=== PATIENT | male | born 2000 ===

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

== ENCOUNTER → 2020-10-27 | Outpatient (CLI) | payer OTHER | LOC: M OUTALCOH 07:52 | PROVIDERS: ATTEND Psychiatry & Neurology Psychiatry | DX: F10.20 Alcohol dependence, uncomplicated (principal) ==

== ENCOUNTER 2020-11-28 11:00 | Outpatient (RCR) | payer OTHER | END 2020-11-29 | LOC: M OUTALCOH 11:00 | PROVIDERS: ATTEND Psychiatry & Neurology Psychiatry | DX: F10.20 Alcohol dependence, uncomplicated (principal) ==

== ENCOUNTER 2020-12-25 10:00 | Outpatient (RCR) | payer OTHER | END 2020-12-30 | LOC: M OUTALCOH 10:00 | PROVIDERS: ATTEND Psychiatry & Neurology Psychiatry | DX: F10.20 Alcohol dependence, uncomplicated (principal) ==

== ENCOUNTER 2021-01-23 13:00 | Outpatient (RCR) | payer OTHER | END 2021-01-29 | LOC: M OUTALCOH 13:00 | PROVIDERS: ATTEND Psychiatry & Neurology Psychiatry | DX: F10.20 Alcohol dependence, uncomplicated (principal) ==

== ENCOUNTER 2021-01-30 13:28 | Outpatient (RCR) | payer OTHER | END 2021-03-01 | LOC: M OUTALCOH 13:28 | PROVIDERS: ATTEND Psychiatry & Neurology Psychiatry | DX: F10.20 Alcohol dependence, uncomplicated (principal) ==